=== PATIENT | female | born 1940 | race Two or more races ===

== ENCOUNTER 2019-01-16 19:57 | Inpatient (IN) | payer OTHER ==
[~2019-01-16] VITALS: Ht 157.5 cm; Wt 147.0 kg
[2019-01-16] MEDS ORDERED: LANTUS SOL100 UNIT/1 (20:46)
[2019-01-16] MEDS ORDERED: SEROQUEL50 MG (20:46)
[2019-01-16] MEDS ORDERED: DEPAKENE250 MG (20:46)
[2019-01-16] MEDS ORDERED: COZAAR100 MG (20:47)
[2019-01-16] MEDS ORDERED: LISINOPRIL2.5 MG (20:47)
--- NOTE | 2019-01-16 20:47 | NUR ---
SE RECIBE PTE ALERTA Y ORIENTADA X3,REFIERE QUE EN LA YEIMI DE HOY LE FERNANDO UN PEREZ DOLOR ABDOMINAL ,EVACUO SAWYER ,FUE A RODRÍGUEZ GASTREOLOGO DR JAY MARQUES WILMAN EL CUAL LA REFIERE AL DR.ESTEBAN DEJESUS
--- NOTE | 2019-01-16 23:43 | NUR ---
EVALUA PTE. SE ORIENTA A PTE SOBRE [place] MEDICO. PTE REFIERE COMPRENDER. SE REALIZAN MUESTRAS DE LABORATORIO BAJO MEDIDAS ASEPTICAS. SE ADMINISTRAN MEDICAMENTOS ULISES ORDEN MEDICA. SE NOTIFICA CT. PROCEDIMIENTOS LLEVADOS A CABO POR .
--- NOTE | 2019-01-17 07:35 | NUR ---
SE RECIBE PTE ALERTA Y ORIENTADO EN TIEMPO, LUGAR Y PERSONA. DARINEL DE DOLOR AL MOMENTO. S/V ESTABLES. TOLERANDO TRATAMIENTO. SE GREYSON PTE COMODA EN CAMA BAJA CON BARANDAS ELEVADAS. SE EVALUA PTE POR CAMBIOS EN CONDICION. PTE PENDIENTE A CONSULTA CON DR. DEJESUS.
[2019-01-21] MEDS ORDERED: CIPRO500 MG PO (14:13)
[2019-01-21] MEDS ORDERED: FLAGYL500MG PO (14:14)
[2019-01-21] MEDS ORDERED: INTESTINEX680 M1 PO (14:14)
== END 2019-01-21 17:16 | disposition home or self-care (01) | DRG 392 ==
LOC: ER 19:57 → MEDJ 01-17 10:32 → SEC-K 01-17 10:32 → MEDJ 01-17 12:28
PROVIDERS: ADMIT Internal Medicine
DX: K52.89 Other specified noninfective gastroenteritis and colitis (principal); F32.89 Other specified depressive episodes; E03.8 Other specified hypothyroidism; I11.0 Hypertensive heart disease with heart failure; E11.9 Type 2 diabetes mellitus without complications; Z79.4 Long term (current) use of insulin; D72.828 Other elevated white blood cell count